=== PATIENT | male | born 1965 | race Caucasian/White ===

== ENCOUNTER → 2018-02-21 | Outpatient (CLI) | payer OTHER | LOC: M SLEEP 19:29 | DX: G47.33 Obstructive sleep apnea (adult) (pediatric) (principal); G47.61 Periodic limb movement disorder | CPT/HCPCS: 95810 ==

== ENCOUNTER → 2018-04-17 | Outpatient (CLI) | payer OTHER ==
[~2018-04-17] MED LIST: /CELE20CA OR; ASPI81TA45 OR; [UNRECOGNIZED DRUG - OTHER] PO; bystolic PO; fish oil PO
--- NOTE | 2018-04-19 11:23 | SLEEPCENT ---
DATE OF STUDY: 04/17/2018 REFERRING PROVIDER: Dr. Bran Oconnell INTERPRETATION: Nocturnal polysomnography was performed for the determination of pressure therapy on this patient with mild obstructive sleep apnea with an apnea-hypopnea index (AHI) of 3.8 and a respiratory disturbance index (RDI) of 7.8. Sleep apnea syndrome symptoms included excessive daytime sleepiness, insomnia, snoring, and nonrestorative sleep. He also has the comorbidity of atrial fibrillation. A total of 7 hours and 12 minutes of data was reviewed with 351 minutes of sleep identified for the entire titration. Sleep latency was 13 minutes. Rapid eye movement (REM) latency was 147 minutes. No slow wave sleep was identified. Sleep efficiency was 82%. Electrocardiogram (EKG) showed sinus bradycardia with an average heart rate of 50 beats per minute. No epileptiform discharge observed. The patient had been fit with a ResMed Mirage FX nasal mask of standard size, 4 cm of water pressure was applied to the circuit, and the lights were dimmed. CPAP begun at 4 cm of water pressure and was taken to a high of 5 cm of water pressure which appeared optimal. On this pressure, his AHI was 0.4 and his MORALES was 0.7. Oxygen saturation sixto was in the 90th percentile. Periodic limb movement index was 9.7. Supine REM sleep was seen on this pressure with a reasonably good waveform. It should be noted that no supine sleep was seen on the diagnostic study, but a significant amount of supine sleep was seen on the titration study. IMPRESSION: 1. Obstructive sleep apnea, mild, reasonably palliated on CPAP at 5 cm of water pressure including supine REM sleep. 2. Periodic limb movements, mild. RECOMMENDATION: Recommend continuation of CPAP therapy at the above pressure via a standard ResMed Mirage FX nasal mask or mask of his preference. Clinical correlation will be necessary to ensure eradication of symptoms. [facility]
== END ==
LOC: M SLEEP 19:45
PROVIDERS: ATTEND Internal Medicine Pulmonary Disease
DX: G47.33 Obstructive sleep apnea (adult) (pediatric) (principal); G47.61 Periodic limb movement disorder

== ENCOUNTER → 2021-08-17 | Outpatient (CLI) | payer OTHER ==
[~2021-08-17] MED LIST changes: -/CELE20CA OR; +CELE1CAP4 OR
== END ==
LOC: M SOG 07:58
PROVIDERS: ATTEND Physician Assistant
DX: M79.641 Pain in right hand (principal)

== ENCOUNTER → 2023-09-22 | Outpatient (CLI) | payer OTHER | LOC: M SOG 13:54 | PROVIDERS: ATTEND Physician Assistant | DX: Z53.9 Procedure and treatment not carried out, unspecified reason (principal) ==

== ENCOUNTER 2024-07-08 07:19 | Day surgery (SDC) | payer OTHER ==
[~2024-07-08] VITALS: Ht 170.2 cm; Wt 81.9 kg
[~2024-07-08 07:19] MED LIST changes: +AZO1CAP PO; +CELE0.09 PO; +CETI10CA13 PO; +DILT120C89 PO; +NEBI10TA2 PO; +OMEG10002 PO; +OMEP-173 PO; +VITA100093 PO; +VONO10TA PO
[2024-07-08] MEDS ORDERED: fentaNYL 100 MCG/2 ML INJECTION As Ordered ONE (07:38)
[2024-07-08] MEDS ORDERED: MIDAZOLAM INJ 2MG/2ML VIAL As Ordered ONE (07:38)
[2024-07-08] MEDS ORDERED: propofoL 200 MG/20 ML VIAL As Ordered ONE (07:40)
[2024-07-08] MEDS ORDERED: ONDANSETRON 4MG 2ML VIAL As Ordered ONE (07:40)
[2024-07-08] MEDS ORDERED: LIDOCAINE 2% 100MG/5ML SDV (FOR ANES.) As Ordered ONE (07:40)
[2024-07-08] MEDS: ceFAZolin SODIUM 2 GM VIAL As Ordered ONE (08:28)
[2024-07-08] MEDS ORDERED: ACETAMINOPHEN 1000MG/100ML IV BAG As Ordered ONE (08:30)
[2024-07-08] MEDS ORDERED: KETOROLAC 60MG 2ML VIAL As Ordered ONE (08:34)
[2024-07-08] MEDS: BACITRACIN OINTMENT 30GM TUBE As Ordered ONE (09:50)
[2024-07-08] MEDS ORDERED: PERC5TAB12 PO (10:04)
[2024-07-08] MEDS ORDERED: LR 1,000 ML IV SCH (10:05)
[2024-07-08] MEDS ORDERED: fentaNYL 100 MCG/2 ML INJECTION IV PRN (10:05)
[2024-07-08] MEDS ORDERED: ONDANSETRON 4MG 2ML VIAL IV PRN (10:05)
[2024-07-08] MEDS: HYDROMORPHONE HCL 0.5 MG/ 0.5 ML SYRINGE IV PRN (10:29)
[2024-07-08] MEDS: oxyCODONE 5MG TAB PO PRN (10:33)
[2024-07-08 11:55] VITALS: BP 120/74; TEMP 96.8; O2SAT 95
== END 2024-07-08 12:10 | disposition home or self-care (01) ==
LOC: M SDC 07:19
PROVIDERS: ATTEND Orthopaedic Surgery Hand Surgery
DX: M72.0 Palmar fascial fibromatosis [Dupuytren] (principal); M25.541 Pain in joints of right hand; I10 Essential (primary) hypertension; Z79.01 Long term (current) use of anticoagulants; K21.9 Gastro-esophageal reflux disease without esophagitis; Z79.899 Other long term (current) drug therapy; Z88.0 Allergy status to penicillin; Z88.1 Allergy status to other antibiotic agents; Z88.5 Allergy status to narcotic agent
CPT/HCPCS: 26123; 26125; 88304; J0131; J0665; J0690; J1100; J1171; J1885; J2250; J2405; J3010